=== PATIENT | female | born 1955 | race Caucasian/White ===

== ENCOUNTER → 2016-10-16 | Outpatient (CLI) | payer OTHER ==
[2016-10-16 17:35] LABS: HEMATOCRIT 41.7 % (37-47); MEAN CELL VOLUME 91.4 fL (80-100); MEAN CORPUSCULAR HEMOGLOBIN 29.8 pg (25-34); MEAN CORPUSCULAR HGB CONC 32.6 g/dl (32-36); MEAN PLATELET VOLUME 9.5 fL (7.4-10.4); PLATELET COUNT 245 K/uL (130-400); RED BLOOD COUNT 4.56 M/uL (4.2-5.4); WHITE BLOOD COUNT 12.94 K/uL (4.8-10.8)
[2016-10-16 18:22] LABS: ALT/SGPT 18 U/L (12-78); AST/SGOT 7 U/L (15-37); BLOOD UREA NITROGEN 19 mg/dl (7-18); BUN/CREATININE RATIO 19.4 (10-20); CALCIUM 9.3 mg/dl (8.5-10.1); CARBON DIOXIDE 25 mmol/L (21-32); CHLORIDE 111 mmol/L (98-107); CHOLESTEROL 197 mg/dl (0-200); CREATININE 0.97 mg/dl (0.60-1.20); GLUCOSE 89 mg/dl (70-99); POTASSIUM 3.7 mmol/L (3.5-5.1); SODIUM 144 mmol/L (136-145)
[2016-10-16 18:24] LABS: ALB/GLOB RATIO 1.1 (0.9-2); ALKALINE PHOSPHATASE 99 U/L (45-117); CHOLESTEROL/HDL RATIO 4.7; HDL CHOLESTEROL 42 mg/dl; LDL CHOLESTEROL CALCULATED 106 mg/dl; TRIGLYCERIDES 247 mg/dl (0-150); VERY LOW DENSITY LIPOPROT CALC 49 mg/dl
== END | disposition home or self-care (01) ==
LOC: C.LABBFT 15:01
PROVIDERS: ATTEND Physician Assistant Medical
DX: Z13.6 Encounter for screening for cardiovascular disorders (principal)

== ENCOUNTER → 2016-10-19 | Outpatient (CLI) | payer OTHER ==
[2016-10-19 12:14] LABS: BASO % 0.5 %; BASO ABS # 0.04 K/uL (0-0.2); EOS % 1.1 %; IG% 0.1 %; LYMPH % 25.7 %; LYMPH ABS # 1.87 K/uL (1.2-3.4); MEAN CELL VOLUME 91.3 fL (80-100); MEAN CORPUSCULAR HGB CONC 33.9 g/dl (32-36); MEAN PLATELET VOLUME 9.5 fL (7.4-10.4); MONO % 6.3 %; NEUT % 66.3 %; PLATELET COUNT 250 K/uL (130-400); RED BLOOD COUNT 4.49 M/uL (4.2-5.4); WHITE BLOOD COUNT 7.29 K/uL (4.8-10.8)
[2016-10-19 14:20] LABS: COMPLETE YES
== END | disposition home or self-care (01) ==
LOC: C.LABBFT 10:01
PROVIDERS: ATTEND Physician Assistant Medical
DX: D72.829 Elevated white blood cell count, unspecified (principal)

== ENCOUNTER → 2017-10-25 | Outpatient (CLI) | payer OTHER ==
[2017-10-25 12:08] LABS: BASO % 0.8 %; BASO ABS # 0.05 K/uL (0-0.2); EOS % 1.8 %; EOS ABS # 0.11 K/uL (0-0.5); HEMATOCRIT 40.1 % (37-47); HEMOGLOBIN 13.7 g/dL (12.0-16.0); IG# 0.01 K/uL (0.00-0.02); LYMPH % 26.2 %; LYMPH ABS # 1.64 K/uL (1.2-3.4); MEAN CELL VOLUME 89.5 fL (80-100); MEAN CORPUSCULAR HEMOGLOBIN 30.6 pg (25-34); MEAN CORPUSCULAR HGB CONC 34.2 g/dl (32-36); MEAN PLATELET VOLUME 9.5 fL (7.4-10.4); MONO % 8.6 %; MONO ABS # 0.54 K/uL (0.11-0.59); NEUT % 62.4 %; NEUT ABS # 3.91 K/uL (1.4-6.5); PLATELET COUNT 245 K/uL (130-400); RED CELL DISTRIBUTION WIDTH CV 13.8 % (11.5-14.5); WHITE BLOOD COUNT 6.26 K/uL (4.8-10.8)
[2017-10-25 12:32] LABS: ALT/SGPT 20 U/L (12-78); AST/SGOT 10 U/L (15-37); BLOOD UREA NITROGEN 14 mg/dl (7-18); CALCIUM 8.8 mg/dl (8.5-10.1); CARBON DIOXIDE 27 mmol/L (21-32); CHOLESTEROL 201 mg/dl (0-200); CREATININE 1.09 mg/dl (0.60-1.20); GLUCOSE 100 mg/dl (70-99); POTASSIUM 3.8 mmol/L (3.5-5.1); SODIUM 141 mmol/L (136-145)
[2017-10-25 12:35] LABS: ALKALINE PHOSPHATASE 97 U/L (45-117); LDL CHOLESTEROL CALCULATED 127 mg/dl; TOTAL PROTEIN 8.2 gm/dl (6.4-8.2)
== END | disposition home or self-care (01) ==
LOC: C.LABBFT 08:06
PROVIDERS: ATTEND Nurse Practitioner
DX: D72.829 Elevated white blood cell count, unspecified (principal); Z13.6 Encounter for screening for cardiovascular disorders

== ENCOUNTER 2020-06-09 18:41 | Inpatient (IN) ==
[2020-06-09] MEDS ORDERED: dexAMETHasone 6 MG in SYRINGE 0 ML IV STA (19:07)
[2020-06-09] MEDS ORDERED: ACETAMINOPHEN 500 MG TAB PO STA (19:08)
[2020-06-09] MEDS ORDERED: SODIUM CHLORIDE 0.9% 1000ML 1,000 ML IV SCH (19:15)
--- NOTE | 2020-06-09 19:41 | Emergency Department Note ---
Impression & Plan Hypoxia, COVID-19 ED Provider Note INFORMANT: Patient ED PROVIDER(S): Agustín Noonan MD CHIEF COMPLAINT: Shortness of breath PLAN: Disposition: Admitted Condition: Good MEDICAL DECISION MAKING: Patient presents back to emergency department due to difficulty breathing. She had been diagnosed with COVID-19 and was doing well initially. Today she took a turn for the worse and EMS responded she had hypoxia on room air. She did feel much better with supplemental oxygen. The patient was registering at 90% on room air when I saw her. She did have mild increased work of breathing but was otherwise without complaints. Chest x-ray does show worsening overall appearance with pneumonia. She was given IV steroid, Decadron as well as coverage for pneumonia with Rocephin and doxycycline. Patient was also given Tylenol. Her CBC was unremarkable. Her chemistry panel revealed mild hypokalemia. Given the hypoxia and worsening Covid picture she will need further management in the hospital. [facility] with [facility], Dr. Nicola Mcgregor. Case was discussed and diagnostics were reviewed. The patient was evaluated by the team in the ER and admitted. Triage Nursing notes reviewed and agree them. Additional history obtained from Dr. Aggarwal the patient's treating physician yesterday. Vital Signs: reviewed and remarkable for fever and borderline pulse oximetry. Differential diagnosis: COVID-19 infection, reactive airway disease, pneumonia, pneumothorax, COPD, CHF, infections, cardiac ischemia, pulmonary embolism, musculoskeletal, gastrointestinal, as well as other pathologies. Diagnostics interpreted by me: ECG: Twelve-lead ECG reveals a normal sinus rhythm at 100 bpm. Inferior Q waves. No ST elevation or depression. Normal axis and QRS. Cardiac Monitoring: Cardiac monitoring ordered by me: The patient was placed on continuous cardiac monitoring and observed. It revealed a normal sinus rhythm at 88 beats per minute without ectopy or evidence of dysrhythmia. Imaging studies: Chest x-ray reveals worsening bilateral infiltrates concerning for pneumonia. [facility]PI: The patient is a 64 year old female who presents to the Emergency Room with complaints of shortness of breath. This started today and is worsening. The patient also notes the following associated symptoms, feeling feverish and a mild cough. The patient has found no relieving factors. Current pain is rated as 0/10. Patient was diagnosed with COVID-19 this week. She was seen yesterday in the ER and was doing relatively well until today. EMS noted her room air saturation was 88% and work of breathing was elevated. She seemed to improve with supplemental oxygen. Pt denies LOC, headache, chills, diaphoresis, visual changes, neck pain, chest pain, nausea, vomiting, abdominal pain, back pain, melena, hematochezia, urinary symptoms, numbness, weakness, lymphadenopathy, rash, or other complaints. ROS: See above HPI for pertinent positives & negatives. A total of 10 systems reviewed and were otherwise negative. PAST MEDICAL HISTORY:See Below, hyperlipidemia PAST SURGICAL HISTORY:See Below, FAMILY HISTORY:See Below SOCIAL HISTORY:See Below, lives with family HOME MEDICATIONS:See Below ALLERGIES:See Below VITALS:See Below PHYSICAL EXAMINATION: GENERAL: Awake, alert, well-appearing, in no distress HENT: Normocephalic, atraumatic. Oropharynx unremarkable. EYES: Normal conjunctiva. Sclera non-icteric. NECK: Inspection normal. Non-tender. Supple. No nuchal rigidity. FROM. No masses. RESPIRATORY: Clear to auscultation. No wheezes. No rales. Mildly increased respiratory effort. CARDIAC: Normal rate. Normal rhythm. No murmurs. No rubs. Extremities warm and well perfused. Pulses equal. No JVD. GI: Soft, non-distended. No tenderness to palpation. No rebound or guarding. No masses. RECTAL: Deferred. MUSCULOSKELETAL: Atraumatic. Chest examination reveals no tenderness. The back is symmetrical on inspection without obvious abnormality. There is no CVA tenderness to palpation. No joint edema. LOWER EXTREMITIES: Calves are equal size bilaterally and non-tender. No edema. No discoloration. NEURO: Normal sensorium. No sensory or motor deficits noted. SKIN: No rash or jaundice noted. Agustín Noonan MD v Past Med/Surg History Surgical History (Updated 01/13/20 @ 13:22 by Che Patel) No history of previous surgery Family History (Updated 10/13/19 @ 14:24 by Bethany Lewis MA) Other Colorectal cancer Diabetes Social History (Updated 01/13/20 @ 13:21 by Che Patel) Smoking Status: Never smoker Hx Alcohol Use: No Hx Substance Use: No Preferred Language: Turkmen Visual Impairment: No Limitations Hearing Ability: Normal marital status: Single Current Living Situation: Other Current Living Situation Comment: lives with sister Feels Safe at Home: Yes Allergies Allergies Allergy/AdvReac Type Severity Reaction Status Date / Time No Known Allergies Allergy Unverified 06/08/20 11:16 Home Meds Home Medications Medication Instructions Recorded Confirmed acetaminophen [Tylenol Extra 1,000 mg PO BID PRN 06/09/20 06/09/20 Strength] Results & Data (ED) Vital Signs Vital Signs - 24 hr 06/09/20 18:50 06/09/20 19:03 06/09/20 19:41 Temperature 38.7 C H Temperature Source Oral Pulse Rate 107 H 99 H Pulse Rate [Right Finger] 90 Pulse Rhythm Regular Pulse Strength Normal Respiratory Rate 20 16 Respiratory Effort / Characteristics Non-Labored Spontaneous Non-Labored Respiratory Depth Normal Normal Respiratory Pattern Regular Blood Pressure 116/67 Blood Pressure [Right Arm] 108/63 Blood Pressure Mean 83 Blood Pressure Mean [Right Arm] 78 Blood Pressure Position Lying Blood Pressure Position [Right Arm] Lying Pulse Oximetry 90 96 95 Oxygen Delivery Method Room Air Room Air Room Air Sepsis Recent Fever Within 48 Hours Yes Sepsis New/Unexplained Change in Mental Status No Sepsis Action Taken by Nursing Physician Notified 06/09/20 20:01 06/09/20 21:16 Temperature 38.0 C H Temperature Source Oral Pulse Rate Pulse Rate [Right Finger] 98 H 88 Pulse Rhythm Pulse Strength Respiratory Rate 16 16 Respiratory Effort / Characteristics Respiratory Depth Normal Normal Respiratory Pattern Blood Pressure Blood Pressure [Right Arm] 130/72 108/73 Blood Pressure Mean Blood Pressure Mean [Right Arm] 91 84 Blood Pressure Position Blood Pressure Position [Right Arm] Lying Lying Pulse Oximetry 94 94 Oxygen Delivery Method Room Air Room Air Sepsis Recent Fever Within 48 Hours Sepsis New/Unexplained Change in Mental Status Sepsis Action Taken by Nursing Laboratory Data Result diagrams: 06/09/20 19:35 06/09/20 19:35 Lab Results 06/09/20 06/09/20 06/09/20 Range/Units 19:35 19:35 19:35 WBC (4.8-10.8) K/uL RBC (4.2-5.4) M/uL Hgb (12.0-16.0) g/dL Hct (37-47) % MCV (80-100) fL MCH (25-34) pg MCHC (32-36) g/dL RDW Std Deviation (36.4-46.3) fL RDW Coeff of Ahmet (11.5-14.5) % Plt Count (130-400) K/uL MPV (7.4-10.4) fL Immature Gran % (Auto) % Neut % (Auto) % Lymph % (Auto) % [place] % (Auto) % Eos % (Auto) % Baso % (Auto) % Neut # (Auto) (1.4-6.5) K/uL Lymph # (Auto) (1.2-3.4) K/uL [place] # (Auto) (0.11-0.59) K/uL Eos # (Auto) (0-0.5) K/uL Baso # (Auto) (0-0.2) K/uL Immature Gran # (Auto) (0.00-0.02) K/uL PT (9.0-12.0) Seconds INR (0.9-1.1) APTT (21.0-31.0) Seconds PTT Ratio Sodium 138 (136-145) mmol/L Potassium 2.9 L (3.5-5.1) mmol/L Chloride 104 (98-107) mmol/L Carbon Dioxide 26 (21-32) mmol/L Anion Gap 7.0 (3-11) BUN 12 (7-18) mg/dl Creatinine 0.98 (0.6-1.2) mg/dl Est Cr Clr Drug Dosing 58.6 ml/min Est GFR ( Amer) 71.2 Est GFR (Non-Af Amer) 61.4 BUN/Creatinine Ratio 12.4 (10-20) Glucose 129 H (70-99) mg/dl Lactate (0.4-2.0) mmol/L Calcium 8.3 L (8.5-10.1) mg/dl Magnesium 1.9 (1.8-2.4) mg/dl Total Bilirubin 0.5 (0.2-1) mg/dl AST 25 (15-37) U/L ALT 20 (12-78) U/L Alkaline Phosphatase 75 (45-117) U/L Troponin I < 0.015 (0-0.045) ng/ml Total Protein 7.9 (6.4-8.2) gm/dl Albumin 3.3 L (3.4-5.0) gm/dl Globulin 4.6 H (2.5-4.0) gm/dl Albumin/Globulin Ratio 0.7 L (0.9-2) Procalcitonin 0.51 H (0-0.5) ng/ml Blood Type A Positive Antibody Screen NEGATIVE 06/09/20 06/09/20 06/09/20 Range/Units 19:35 19:35 19:40 WBC 8.98 (4.8-10.8) K/uL RBC 4.37 (4.2-5.4) M/uL Hgb 13.1 (12.0-16.0) g/dL Hct 38.5 (37-47) % MCV 88.1 (80-100) fL MCH 30.0 (25-34) pg MCHC 34.0 (32-36) g/dL RDW Std Deviation 42.8 (36.4-46.3) fL RDW Coeff of Ahmet 13.2 (11.5-14.5) % Plt Count 173 (130-400) K/uL MPV 9.6 (7.4-10.4) fL Immature Gran % (Auto) 0.3 % Neut % (Auto) 89.0 % Lymph % (Auto) 5.0 % [place] % (Auto) 5.7 % Eos % (Auto) 0.0 % Baso % (Auto) 0.0 % Neut # (Auto) 7.99 H (1.4-6.5) K/uL Lymph # (Auto) 0.45 L (1.2-3.4) K/uL [place] # (Auto) 0.51 (0.11-0.59) K/uL Eos # (Auto) 0.00 (0-0.5) K/uL Baso # (Auto) 0.00 (0-0.2) K/uL Immature Gran # (Auto) 0.03 H (0.00-0.02) K/uL PT 10.9 (9.0-12.0) Seconds INR 1.0 (0.9-1.1) APTT 30.5 (21.0-31.0) Seconds PTT Ratio 1.1 Sodium (136-145) mmol/L Potassium (3.5-5.1) mmol/L Chloride (98-107) mmol/L Carbon Dioxide (21-32) mmol/L Anion Gap (3-11) BUN (7-18) mg/dl Creatinine (0.6-1.2) mg/dl Est Cr Clr Drug Dosing ml/min Est GFR ( Amer) Est GFR (Non-Af Amer) BUN/Creatinine Ratio (10-20) Glucose (70-99) mg/dl Lactate (0.4-2.0) mmol/L Calcium (8.5-10.1) mg/dl Magnesium (1.8-2.4) mg/dl Total Bilirubin (0.2-1) mg/dl AST (15-37) U/L ALT (12-78) U/L Alkaline Phosphatase (45-117) U/L Troponin I (0-0.045) ng/ml Total Protein (6.4-8.2) gm/dl Albumin (3.4-5.0) gm/dl Globulin (2.5-4.0) gm/dl Albumin/Globulin Ratio (0.9-2) Procalcitonin (0-0.5) ng/ml Blood Type Antibody Screen 06/09/20 Range/Units 20:43 WBC (4.8-10.8) K/uL RBC (4.2-5.4) M/uL Hgb (12.0-16.0) g/dL Hct (37-47) % MCV (80-100) fL MCH (25-34) pg MCHC (32-36) g/dL RDW Std Deviation (36.4-46.3) fL RDW Coeff of Ahmet (11.5-14.5) % Plt Count (130-400) K/uL MPV (7.4-10.4) fL Immature Gran % (Auto) % Neut % (Auto) % Lymph % (Auto) % [place] % (Auto) % Eos % (Auto) % Baso % (Auto) % Neut # (Auto) (1.4-6.5) K/uL Lymph # (Auto) (1.2-3.4) K/uL [place] # (Auto) (0.11-0.59) K/uL Eos # (Auto) (0-0.5) K/uL Baso # (Auto) (0-0.2) K/uL Immature Gran # (Auto) (0.00-0.02) K/uL PT (9.0-12.0) Seconds INR (0.9-1.1) APTT (21.0-31.0) Seconds PTT Ratio Sodium (136-145) mmol/L Potassium (3.5-5.1) mmol/L Chloride (98-107) mmol/L Carbon Dioxide (21-32) mmol/L Anion Gap (3-11) BUN (7-18) mg/dl Creatinine (0.6-1.2) mg/dl Est Cr Clr Drug Dosing ml/min Est GFR ( Amer) Est GFR (Non-Af Amer) BUN/Creatinine Ratio (10-20) Glucose (70-99) mg/dl Lactate 0.7 (0.4-2.0) mmol/L Calcium (8.5-10.1) mg/dl Magnesium (1.8-2.4) mg/dl Total Bilirubin (0.2-1) mg/dl AST (15-37) U/L ALT (12-78) U/L Alkaline Phosphatase (45-117) U/L Troponin I (0-0.045) ng/ml Total Protein (6.4-8.2) gm/dl Albumin (3.4-5.0) gm/dl Globulin (2.5-4.0) gm/dl Albumin/Globulin Ratio (0.9-2) Procalcitonin (0-0.5) ng/ml Blood Type Antibody Screen Administered Medications Doxycycline Hyclate 100 mg/ (Dextrose) 110 mls @ 50 mls/hr IV NOW STA Stop: 06/09/20 22:37 Last Admin: 06/09/20 21:15 Dose: 50 mls/hr Documented by: [id number] Discontinued Medications Acetaminophen (Acetaminophen 500 Mg Tab) 1,000 mg PO NOW STA Stop: 06/09/20 19:09 Last Admin: 06/09/20 19:40 Dose: 1,000 mg Documented by: [id number] Sodium Chloride (Nss 1000ml) 1,000 mls @ 999 mls/hr IV .[id number] DARRYL Stop: 06/09/20 20:15 Last Admin: 06/09/20 19:40 Dose: 999 mls/hr Documented by: [id number] Dexamethasone 6 mg/ Syringe 1.5 mls @ 1 mls/min IV NOW STA Stop: 06/09/20 19:08 Last Admin: 06/09/20 19:41 Dose: 1 mls/min Documented by: [id number] Ceftriaxone Sodium (Rocephin) 2,000 mg in 70 mls @ 140 mls/hr IV NOW STA Stop: 06/09/20 20:55 Last Admin: 06/09/20 21:15 Dose: 140 mls/hr Documented by: [id number] Discharge Plan Visit Data Chief Complaint: Illness Stated Complaint: SOB, ILLNESS, COVID + ED Provider: Agustín Noonan Discharge Problem: Hypoxia, COVID-19 Forms Stand Alone Forms: My [facility] Prescriptions Prescriptions: No Action acetaminophen [Tylenol Extra Strength] 500 mg Tablet 1,000 mg PO BID PRN (Reason: Pain) RF: 0
[2020-06-09 19:51] LABS: Hematocrit (blood only) 38.5 % (37-47); Hemoglobin 13.1 g/dL (12.0-16.0); Mean Corpuscular Volume 88.1 fL (80-100); Mean Platelet Volume 9.6 fL (7.4-10.4); Platelet Count 173 K/uL (130-400); RDW Coefficient of Variation 13.2 % (11.5-14.5); RDW Standard Deviation 42.8 fL (36.4-46.3); Red Blood Count 4.37 M/uL (4.2-5.4); White Blood Count 8.98 K/uL (4.8-10.8)
--- NOTE | 2020-06-09 19:58 | XRay Report ---
XR chest 1V portable HISTORY: 64 years-old Female hypoxia, +covid acute hypoxia COMPARISON: Chest radiograph 06/08/2020 TECHNIQUE: Portable AP view of the chest FINDINGS: Cardiac silhouette is upper limits of normal in size. Moderate hemidiaphragmatic elevation. Lungs are hypoinflated. No pneumothorax or large pleural effusion. Mildly progressed bilateral airspace opacit ies. Bones appear grossly intact. IMPRESSION: Mildly progressed bilateral airspace opacities compatible with worsening pneumonia. ACT 112: Negative or not required by law. The above report was generated using voice recognition software. It may contain grammatical, syntax o r spelling errors. Electronically signed by: Marv Alarcon M.D. 06/09/2020 7:57 PM
[2020-06-09 20:01] LABS: Partial Thromboplastin Ratio 1.1; Partial Thromboplastin Time 30.5 Seconds (21.0-31.0); Prothrombin Time 10.9 Seconds (9.0-12.0)
[2020-06-09 20:09] LABS: Alanine Aminotransferase 20 U/L (12-78); Albumin Level 3.3 gm/dl (3.4-5.0); Aspartate Aminotransferase 25 U/L (15-37); BUN Creatinine Ratio 12.4 (10-20); Blood Urea Nitrogen 12 mg/dl (7-18); Calcium 8.3 mg/dl (8.5-10.1); Carbon Dioxide 26 mmol/L (21-32); Chloride 104 mmol/L (98-107); Creatinine Clr Calc Pharmacy 58.6 ml/min; Est GFR (African American) 71.2; Est GFR (Non-African American) 61.4; Glucose 129 mg/dl (70-99); Magnesium 1.9 mg/dl (1.8-2.4); Potassium 2.9 mmol/L (3.5-5.1); Sodium 138 mmol/L (136-145)
[2020-06-09 20:14] LABS: Albumin Globulin Ratio 0.7 (0.9-2); Alkaline Phosphatase 75 U/L (45-117); Bilirubin,Total 0.5 mg/dl (0.2-1); Globulin 4.6 gm/dl (2.5-4.0); Total Protein 7.9 gm/dl (6.4-8.2); Troponin I < 0.015 ng/ml (0-0.045)
[2020-06-09] MEDS ORDERED: DOXYCYCLINE HYCLATE 100 MG in DEXTROSE 5% 100 ML IV STA (20:26)
[2020-06-09] MEDS ORDERED: cefTRIAXone SODIUM 2,000 MG/70 ML BAG IV STA (20:26)
[2020-06-09 20:40] LABS: Immature Granulocytes # (auto) 0.03 K/uL (0.00-0.02); Immature Granulocytes % (auto) 0.3 %; Lymphocytes # (auto) 0.45 K/uL (1.2-3.4); Monocytes # (auto) 0.51 K/uL (0.11-0.59); Monocytes % (auto) 5.7 %; Neutrophils # (auto) 7.99 K/uL (1.4-6.5)
--- NOTE | 2020-06-09 22:40 | History & Physical Report ---
Date of Service June 09, 2020 Assessment & Plan (1) Pneumonia due to COVID-19 virus: Pneumonia due to COVID-19 virus infection with hypoxia- Chest x-ray today compared to 06/08 shows worsening pneumonia. Decadron 6 mg IV daily Convalescent plasma, consent obtained Remdesivir IV per protocol Ceftriaxone 1 g IV daily Azithromycin 500 mg IV daily Ventolin HFA 2 puffs 4 times daily, and every 2 hours as needed Nasal cannula oxygen, titrate to keep pulse ox 94 to 95% Present on Admission?: Yes (2) Fatigue: Patient's principal symptom is that of fatigue Present on Admission?: Yes (3) Hypoxia: See above Present on Admission?: Yes History of Present Illness Chief Complaint: The patient presents to the emergency department with complaint of shortness of breath, with a history of COVID-19 diagnosis on 06/08, but became hypoxic and EMS was called to her home. Primary Care Provider: Bill Malik MD The patient is a 64-year-old female with a past medical history including periodontitis, mild intellectual disability, hyperlipidemia and recent diagnosis of COVID-19 infection. Vital signs in the emergency department revealed the following:, Temperature 101.7 and pulse ox 90% on room air.. Significant laboratories: Glucose 129, albumin 3.3, potassium 2.9. COVID-19 was positive on 06/08. Allergies Allergy/AdvReac Type Severity Reaction Status Date / Time No Known Allergies Allergy Unverified 06/08/20 11:16 Home Medications Medication Instructions Recorded Confirmed Type acetaminophen [Tylenol Extra 1,000 mg PO BID PRN 06/09/20 06/09/20 History Strength] Past Med/Surg History Surgical History (Updated 01/13/20 @ 13:22 by Che Patel) No history of previous surgery Family History (Updated 10/13/19 @ 14:24 by Bethany Lewis MA) Other Colorectal cancer Diabetes Social History (Updated 01/13/20 @ 13:21 by Che Patel) Smoking Status: Former smoker Hx Alcohol Use: No Hx Substance Use: No Preferred Language: Slovak Communication Ability: Effective Visual Impairment: No Limitations Hearing Ability: Normal [employer] Required: No Beliefs That Will Affect Care: None marital status: Single Current Living Situation: Family Current Living Situation Comment: sister Feels Safe at Home: Yes Assistive Devices: None Review of Systems Review of Systems: The patient denies chest pain, palpitations, lower extremity swelling, sore throat, fevers, chills, sweats, nausea, vomiting, diarrhea , constipation, abdominal pain, pelvic pain, blood in urine or stool, dysuria, urinary frequency or urgency, lightheadedness, dizziness, headache, memory loss, loss of consciousness, rash, abnormal bruising or bleeding, imbalance, focal weakness, numbness or tingling in arms or legs, generalized arthralgias or myalgias, back or neck pain, or night sweats. The review of systems is otherwise negative other than for that already noted above, and at least 10 systems have been reviewed. Physical Exam Physical Exam: The patient is awake, alert and oriented 3, well developed and well nourished, normocephalic and atraumatic, lying in bed and in no acute distress. HEENT--PERRL, EOMI, mucous membranes and oropharynx dry. Neck--supple. No JVD. No bruits. Thyroid normal, trachea midline, no adenopathy. Heart--normal S1 and S2. No murmurs, rubs or gallops. Lungs--coarse breath sounds bilaterally. No respiratory distress, no accessory muscle use. Abdomen--normal bowel sounds and soft. Nontender. Nondistended, no hernias or masses, no organomegaly. Extremities--no cyanosis or clubbing. No edema. Dermatologic--normal skin turgor, normal color, no abnormal lymph nodes, no rash. Neurologic--cranial nerves II through XII grossly intact. Rheumatologic--normal range of motion. Psychiatric--normal affect. Results & Data Results & Data ([facility]) Vital Signs (Past 12 Hours) Vital Signs Temp Pulse Pulse Resp BP BP Pulse Ox 06/09/20 21:16 100.4 F H 88 16 108/73 94 06/09/20 20:01 98 H 16 130/72 94 06/09/20 19:41 99 H 95 06/09/20 19:03 90 16 108/63 96 06/09/20 18:50 101.7 F H 107 H 20 116/67 90 Laboratory Results Laboratory Results WBC 8.98 K/uL (4.8-10.8) 06/09/20 19:35 RBC 4.37 M/uL (4.2-5.4) 06/09/20 19:35 Hgb 13.1 g/dL (12.0-16.0) 06/09/20 19:35 Hct 38.5 % (37-47) 06/09/20 19: MCV 88.1 fL (80-100) 06/09/20 19:35 MCH 30.0 pg (25-34) 06/09/20 19: MCHC 34.0 g/dL (32-36) 06/09/20 19: RDW Std Deviation 42.8 fL (36.4-46.3) 06/09/20 19: RDW Coeff of Ahmet 13.2 % (11.5-14.5) 06/09/20: Plt Count 173 K/uL (130-400) 06/09/20: MPV 9.6 fL (7.4-10.4) 06/09/20 19:35 Immature Gran % (Auto) 0.3 % 06/09/20: Neut % (Auto) 89.0 % 06/09/20 19:35 Lymph % (Auto) 5.0 % 06/09/20 19:35 [place] % (Auto) 5.7 % 06/09/20 19:35 Eos % (Auto) 0.0 % 06/09/20: Baso % (Auto) 0.0 % 06/09/20 19:35 Neut # (Auto) 7.99 K/uL (1.4-6.5) H 06/09/20 19:35 Lymph # (Auto) 0.45 K/uL (1.2-3.4) L 06/09/20:35 [place] # (Auto) 0.51 K/uL (0.11-0.59) 06/09/20 19:35 Eos # (Auto) 0.00 K/uL (0-0.5) 06/09/20 19:35 Baso # (Auto) 0.00 K/uL (0-0.2) 06/09/20 19:35 Immature Gran # (Auto) 0.03 K/uL (0.00-0.02) H 06/09/20 19: PT 10.9 Seconds (9.0-12.0) 06/09/20 19:35 INR 1.0 (0.9-1.1) 06/09/20 19:35 APTT 30.5 Seconds (21.0-31.0) 06/09/20 19:35 PTT Ratio 1.1 06/09/20 19:35 D-Dimer 770 ug/L FEU (0-500) H* 06/09/20 19:35 Sodium 138 mmol/L (136-145) 06/09/20 19:35 Potassium 2.9 mmol/L (3.5-5.1) L 06/09/20 19:35 Chloride 104 mmol/L (98-107) 06/09/20 19:35 Carbon Dioxide 26 mmol/L (21-32) 06/09/20 19:35 Anion Gap 7.0 (3-11) 06/09/20 19:35 BUN 12 mg/dl (7-18) 06/09/20 19:35 Creatinine 0.98 mg/dl (0.6-1.2) 06/09/20 19:35 Est Cr Clr Drug Dosing 58.6 ml/min 06/09/20 19:35 Est GFR ( Amer) 71.2 06/09/20 19:35 Est GFR (Non-Af Amer) 61.4 06/09/20 19:35 BUN/Creatinine Ratio 12.4 (10-20) 06/09/20 19:35 Glucose 129 mg/dl (70-99) H 06/09/20 19:35 Lactate 0.7 mmol/L (0.4-2.0) 06/09/20 20:43 Calcium 8.3 mg/dl (8.5-10.1) L 06/09/20 19:35 Magnesium 1.9 mg/dl (1.8-2.4) 06/09/20 19:35 Total Bilirubin 0.5 mg/dl (0.2-1) 06/09/20 19:35 AST 25 U/L (15-37) 06/09/20 19:35 ALT 20 U/L (12-78) 06/09/20 19:35 Alkaline Phosphatase 75 U/L (45-117) 06/09/20 19:35 Troponin I < 0.015 ng/ml (0-0.045) 06/09/20 19:35 Total Protein 7.9 gm/dl (6.4-8.2) 06/09/20 19:35 Albumin 3.3 gm/dl (3.4-5.0) L 06/09/20 19:35 Globulin 4.6 gm/dl (2.5-4.0) H 06/09/20 19:35 Albumin/Globulin Ratio 0.7 (0.9-2) L 06/09/20 19:35 Procalcitonin 0.51 ng/ml (0-0.5) H 06/09/20 19:35 Hepatitis C Ab Screen Neg (Neg) 06/09/20 19:35 Blood Type A Positive 06/09/20 19:35 Antibody Screen NEGATIVE 06/09/20 19:35 Diagnostic Findings [facility], [id number] XRay Report Patient: Matteo MCCABE Date: 06/09/20#: [id number]: [id number]Acct ID:[id number]: Date: 1955[facility] Zip: [place] [id number]: 64Location: EDSex: FRoom/Bed:Att Phy:Diagnosis: SOB, ILLNESS, COVID +Yesenia Phy: Bill Malik III, MDService Date: 06/09/20Fam Phy:Interpreting Phy: Brayden AlarconAdmit Phy: Ordering Phy: Agustín Noonan MD cc: ~ XR chest 1V portable HISTORY: 64 years-old Female hypoxia, +covid acute hypoxia COMPARISON: Chest radiograph 06/08/2020 TECHNIQUE: Portable AP view of the chest FINDINGS: Cardiac silhouette is upper limits of normal in size. Moderate hemidiaphragmatic elevation. Lungs are hypoinflated. No pneumothorax or large pleural effusion. Mildly progressed bilateral airspace opacities. Bones appear grossly intact. IMPRESSION: Mildly progressed bilateral airspace opacities compatible with worsening pneumonia. ACT 112: Negative or not required by law. The above report was generated using voice recognition software. It may contain grammatical, syntax or spelling errors. Electronically signed by: Marv Alarcon M.D. 06/09/2020 7:57 PM Dictated: 06/09/[id number]: 06/09/201955 Code Status & VTE Plan Code Status Full code VTE Prophylaxis Plan VTE Prophylaxis will be ordered: Yes PG Care Time/CCT Total # of Minutes Spent Total Time Spent with Patient: Total time spent is greater than 50% in coordination of care (as documented) at patient's floor/unit and/or counseling patient: Coding Level of Care Code 22044 Initial Inpt Care Lvl 2 Diagnoses Pneumonia due to COVID-19 virus U07.1; J12.89 Fatigue R53.83 Fatigue type: unspecified Hypoxia R09.02 (1) Fatigue Fatigue type: unspecified Qualified Code(s): R53.83 - Other fatigue
[2020-06-09 22:51] LABS: D Dimer 770 ug/L FEU (0-500)
[2020-06-10] MEDS ORDERED: ACETAMINOPHEN 325 MG TAB PO PRN (00:22)
[2020-06-10] MEDS ORDERED: ONDANSETRON INJ 2 MG/ML 2 ML VIAL IV PRN (00:22)
[2020-06-10] MEDS ORDERED: REMDESIVIR 200 MG in SODIUM CHLORIDE 0.9% 210 ML IV ONE (01:00)
[2020-06-10] MEDS: SODIUM CHLORIDE 0.9% 10ML FLUSH IV SCH ×2 (02:09→23:29)
[2020-06-10] MEDS ORDERED: POTASSIUM CHLORIDE CRTAB 20 MEQ TABCR PO ONE (05:25)
[2020-06-10] MEDS: dexAMETHasone 6 MG in SYRINGE 0 ML IV SCH (10:10)
[2020-06-10] MEDS: AZITHROMYCIN 500 MG in DEXTROSE 5% 250 ML IV SCH (10:13)
[2020-06-10 12:15] LABS: BUN Creatinine Ratio 12.9 (10-20); Calcium 8.5 mg/dl (8.5-10.1); Creatinine Clr Calc Pharmacy 70.3 ml/min; Est GFR (African American) 88.3; Est GFR (Non-African American) 76.2; Potassium 3.5 mmol/L (3.5-5.1)
[2020-06-10] MEDS: ALBUTEROL HFA 8 GM INHALER INH SCH ×3 (12:20→19:21)
--- NOTE | 2020-06-10 13:39 | Hospitalist Progress Note ---
Date of Service June 10, 2020 Assessment & Plan (1) Pneumonia due to COVID-19 virus: Pneumonia due to COVID-19 virus infection with hypoxia- requiring 2L NC, no distress Chest x-ray 06/09 shows worsening pneumonia compared to 06/08 Decadron 6 mg IV daily, day 2 Convalescent plasma, consent obtained, awaiting transfusion Remdesivir IV per protocol, day 2 if she would come off oxygen then would stop Remdesivir within the window as symptoms were less than 7 days Ceftriaxone 1 g IV daily x 5 days Azithromycin 500 mg IV daily x 5 days Ventolin HFA 2 puffs 4 times daily, and every 2 hours as needed Nasal cannula oxygen, titrate to keep pulse ox 94 to 95% check labs tomorrow try to wean oxygen as tolerated may get worse prior to getting better, watch closely (2) Fatigue: Patient's principal symptom is that of fatigue (3) Hypoxia: acute hypoxic respiratory failure due to COVID pneumonia stable on 2L today monitor closely for any desaturations Admission and Anticipated Discharge Date Admission Date: June 09, 2020 Subjective patient pleasant, eating lunch, breathing well, no distress denies chest pain, denies dyspnea, has a mild cough, no fever reviewed chart she is on 2L NC at this time reviewed labs Review of Systems Review of Systems: All systems reviewed & are unremarkable except as noted in Subjective Physical Exam Constitutional: WD/WN, vitals as above Neck: trachea midline, no thyromegaly Respiratory: normal respiratory effort, lungs clear to auscultation Cardiovascular: RRR, no murmur, no edema Gastrointestinal (Abdomen): normal bowel sounds, soft, nontender, no hepatosplenomegaly Musculoskeletal: no cyanosis or clubbing, extremities motor strength 5/5 Skin: no rashes, warm and dry Neurologic: patellar DTR's 2+ bilat, sensation intact and PERRL, EOMI, accommodation nl, no face palsy, no dysarthria Psychiatric: A+Ox3, euthymic affect Lymphatic: no cervical or axillary lymphadenopathy Results & Data Results & Data ([facility]) Vital Signs (Past 12 Hours) Vital Signs Temp Pulse Pulse Resp BP BP Pulse Ox 06/10/20 12:11 36.8 C 93 H 16 112/72 90 06/10/20 11:06 18 95 06/10/20 10:30 18 94 06/10/20 10:00 18 94 06/10/20 09:30 17 94 06/10/20 09:00 18 95 06/10/20 08:30 18 94 06/10/20 08:09 36.9 C 91 H 18 126/68 95 06/10/20 08:00 85 17 94 06/10/20 07:30 18 95 06/10/20 07:29 36.6 C 91 H 18 127/68 94 06/10/20 07:09 36.7 C 78 18 131/72 95 06/10/20 07:00 18 94 06/10/20 06:58 36.9 C 91 H 20 123/64 94 06/10/20 06:28 36.6 C 77 16 128/70 96 06/10/20 06:13 36.6 C 78 16 128/70 96 06/10/20 06:11 37.3 C 72 22 122/64 95 06/10/20 06:09 89 L 06/10/20 05:50 37.1 C 74 22 119/62 90 06/10/20 04:17 36.9 C 67 16 105/49 L 92 06/10/20 03:47 16 91 06/10/20 02:11 36.8 C 75 16 122/69 92 Laboratory Results Laboratory Results - last 24 hr 06/09/20 06/09/20 06/09/20 19:35 19:35 19:35 WBC RBC Hgb Hct MCV MCH MCHC RDW Std Deviation RDW Coeff of Ahmet Plt Count MPV Immature Gran % (Auto) Neut % (Auto) Lymph % (Auto) [place] % (Auto) Eos % (Auto) Baso % (Auto) Neut # (Auto) Lymph # (Auto) [place] # (Auto) Eos # (Auto) Baso # (Auto) Immature Gran # (Auto) PT INR APTT PTT Ratio D-Dimer Sodium 138 Potassium 2.9 L Chloride 104 Carbon Dioxide 26 Anion Gap 7.0 BUN 12 Creatinine 0.98 Est Cr Clr Drug Dosing 58.6 Est GFR ( Amer) 71.2 Est GFR (Non-Af Amer) 61.4 BUN/Creatinine Ratio 12.4 Glucose 129 H Lactate Calcium 8.3 L Magnesium 1.9 Total Bilirubin 0.5 AST 25 ALT 20 Alkaline Phosphatase 75 Troponin I < 0.015 Total Protein 7.9 Albumin 3.3 L Globulin 4.6 H Albumin/Globulin Ratio 0.7 L Procalcitonin 0.51 H Hepatitis C Ab Screen Blood Type A Positive Antibody Screen NEGATIVE 06/09/20 06/09/20 06/09/20 19:35 19:35 19:35 WBC 8.98 RBC 4.37 Hgb 13.1 Hct 38.5 MCV 88.1 MCH 30.0 MCHC 34.0 RDW Std Deviation 42.8 RDW Coeff of Ahmet 13.2 Plt Count 173 MPV 9.6 Immature Gran % (Auto) 0.3 Neut % (Auto) 89.0 Lymph % (Auto) 5.0 [place] % (Auto) 5.7 Eos % (Auto) 0.0 Baso % (Auto) 0.0 Neut # (Auto) 7.99 H Lymph # (Auto) 0.45 L [place] # (Auto) 0.51 Eos # (Auto) 0.00 Baso # (Auto) 0.00 Immature Gran # (Auto) 0.03 H PT 10.9 INR 1.0 APTT 30.5 PTT Ratio 1.1 D-Dimer 770 H* Sodium Potassium Chloride Carbon Dioxide Anion Gap BUN Creatinine Est Cr Clr Drug Dosing Est GFR ( Amer) Est GFR (Non-Af Amer) BUN/Creatinine Ratio Glucose Lactate Calcium Magnesium Total Bilirubin AST ALT Alkaline Phosphatase Troponin I Total Protein Albumin Globulin Albumin/Globulin Ratio Procalcitonin Hepatitis C Ab Screen Blood Type Antibody Screen 06/09/20 06/09/20 06/09/20 19:35 19:40 20:43 WBC RBC Hgb Hct MCV MCH MCHC RDW Std Deviation RDW Coeff of Ahmet Plt Count MPV Immature Gran % (Auto) Neut % (Auto) Lymph % (Auto) [place] % (Auto) Eos % (Auto) Baso % (Auto) Neut # (Auto) Lymph # (Auto) [place] # (Auto) Eos # (Auto) Baso # (Auto) Immature Gran # (Auto) PT INR APTT PTT Ratio D-Dimer Sodium Potassium Chloride Carbon Dioxide Anion Gap BUN Creatinine Est Cr Clr Drug Dosing Est GFR ( Amer) Est GFR (Non-Af Amer) BUN/Creatinine Ratio Glucose Lactate 0.7 Calcium Magnesium Total Bilirubin AST ALT Alkaline Phosphatase Troponin I Total Protein Albumin Globulin Albumin/Globulin Ratio Procalcitonin Hepatitis C Ab Screen Neg Blood Type Antibody Screen 06/10/20 11:21 WBC RBC Hgb Hct MCV MCH MCHC RDW Std Deviation RDW Coeff of Ahmet Plt Count MPV Immature Gran % (Auto) Neut % (Auto) Lymph % (Auto) [place] % (Auto) Eos % (Auto) Baso % (Auto) Neut # (Auto) Lymph # (Auto) [place] # (Auto) Eos # (Auto) Baso # (Auto) Immature Gran # (Auto) PT INR APTT PTT Ratio D-Dimer Sodium 141 Potassium 3.5 D Chloride 109 H Carbon Dioxide 27 Anion Gap 5.0 BUN 11 Creatinine 0.82 Est Cr Clr Drug Dosing 70.3 Est GFR ( Amer) 88.3 Est GFR (Non-Af Amer) 76.2 BUN/Creatinine Ratio 12.9 Glucose 168 H Lactate Calcium 8.5 Magnesium Total Bilirubin AST ALT Alkaline Phosphatase Troponin I Total Protein Albumin Globulin Albumin/Globulin Ratio Procalcitonin Hepatitis C Ab Screen Blood Type Antibody Screen Medications Administered Current Inpatient Medications Acetaminophen (Acetaminophen 325 Mg Tab) 650 mg PO Q4H PRN PRN Reason: Pain or Fever Stop: 07/10/20 00:21 Albuterol (Albuterol Hfa 8 Gm Inhaler) 2 puffs INH QIDR [facility] Stop: 07/10/20 00:21 Last Admin: 06/10/20 12:20 Dose: Not Given Documented by: Dexamethasone 6 mg/ Syringe 1.5 mls @ 1 mls/min IV QAM [facility] Stop: 07/10/20 08:59 Last Admin: 06/10/20 10:10 Dose: 1 mls/min Documented by: Remdesivir 100 mg/ Sodium (Chloride) 250 mls @ 250 mls/hr IV Q24H [facility]; Protocol Stop: 06/13/20 20:59 Ceftriaxone Sodium 1,000 mg/ (Dextrose) 50 mls @ 100 mls/hr IV Q24H [facility]; Protocol Stop: 06/15/20 20:29 Azithromycin 500 mg/ Dextrose 255 mls @ 125 mls/hr IV DAILY [facility] Stop: 06/17/20 08:59 Last Infusion: 06/10/20 12:21 Dose: Infused Documented by: Ondansetron HCl (Ondansetron Inj 2 Mg/Ml 2 Ml Vial) 4 mg IV Q6H PRN PRN Reason: Nausea Stop: 07/10/20 00:21 Sodium Chloride (Sodium Chloride 0.9% 10ml Flush) 30 ml IV Q24H [facility] Stop: 06/14/20 01:01 Last Admin: 06/10/20 02:09 Dose: 30 ml Documented by: PG Care Time/CCT Total # of Minutes Spent Total Time Spent with Patient: Total time spent is greater than 50% in coordination of care (as documented) at patient's floor/unit and/or counseling patient: Coding Level of Care Code 77345 Subseq Hosp Care Lvl 2 Diagnoses Pneumonia due to COVID-19 virus U07.1; J12.89 Fatigue R53.83 Fatigue type: unspecified Hypoxia R09.02 (1) Fatigue Fatigue type: unspecified Qualified Code(s): R53.83 - Other fatigue
--- NOTE | 2020-06-10 14:28 | Electrocardiogram Report ---
Test Reason : Blood Pressure : / mmHG Vent. Rate : 100 BPM Atrial Rate : 100 BPM P-R Int : 126 ms QRS Dur : 076 ms QT Int : 342 ms P-R-T Axes : 039 -14 026 degrees QTc Int : 441 ms Normal sinus rhythm Inferior infarct , age undetermined Low voltage QRS Abnormal ECG When compared with ECG of 08-JUN-2020 11:11, No significant change was found Confirmed by Curtis Carreon ([id number]) on 06/10/2020 2:27:32 PM Referred By: REFERRED SELF Confirmed By:Curtis Carreon
[2020-06-10 14:33] LABS: Appearance Urine Cloudy (Clear); Bacteria Urine Automated Negative (Negative); Bilirubin Urine Negative (Negative); Blood Urine Trace (Negative); Color Urine Yellow; Glucose Urine UA Negative (Negative); Ketones Urine Negative (Negative); Leukocyte Esterase Urine 3+ (Negative); Nitrite Urine Negative (Negative); Protein Urine Trace (Negative); Urobilinogen Urine Negative (Negative); WBC Urine Automated >30 /hpf (0-5); pH Urine 5.5 (4.5-7.5)
[2020-06-10] MEDS: cefTRIAXone SODIUM 1,000 MG in DEXTROSE 5% 50 ML IV SCH (20:53)
[2020-06-10] MEDS: REMDESIVIR 100 MG in SODIUM CHLORIDE 0.9% 230 ML IV SCH (21:57)
[2020-06-11] MEDS ORDERED: ALBUTEROL HFA 8 GM INHALER INH PRN (06:57)
[2020-06-11] MEDS: dexAMETHasone 6 MG in SYRINGE 0 ML IV SCH (08:08)
[2020-06-11] MEDS: AZITHROMYCIN 500 MG in DEXTROSE 5% 250 ML IV SCH (08:08)
--- NOTE | 2020-06-11 12:48 | Hospitalist Progress Note ---
Date of Service June 11, 2020 Assessment & Plan (1) Pneumonia due to COVID-19 virus: Pneumonia due to COVID-19 virus infection with hypoxia- requiring 2L NC past two days, no distress Chest x-ray 06/09 shows worsening pneumonia compared to 06/08 Decadron 6 mg IV daily, day 3 Convalescent plasma administered 06/10 Remdesivir IV per protocol, day 3 if she would come off oxygen then would stop Remdesivir within the window as symptoms were less than 7 days Ceftriaxone 1 g IV daily x 5 days Azithromycin 500 mg IV daily x 5 days Ventolin HFA 2 puffs 4 times daily, and every 2 hours as needed Nasal cannula oxygen, titrate to keep pulse ox 94 to 95% check labs tomorrow try to wean oxygen as tolerated may get worse prior to getting better, watch closely but for now she remains completely stable (2) Fatigue: Patient's principal symptom is that of fatigue (3) Hypoxia: acute hypoxic respiratory failure due to COVID pneumonia stable on 2L for two days monitor closely for any desaturations Admission and Anticipated Discharge Date Admission Date: June 09, 2020 Subjective she continues to be stable on 2L eating fairly well, not interested in breakfast but will try to eat lunch today UA with > 30 WBC, no dysuria or frequency, told her she is on urine culture for lungs anyway no fever, no nausea, minimal cough Review of Systems Review of Systems: All systems reviewed & are unremarkable except as noted in Subjective Physical Exam Constitutional: WD/WN, vitals as above Neck: trachea midline, no thyromegaly Respiratory: normal respiratory effort, lungs clear to auscultation Cardiovascular: RRR, no murmur, no edema Gastrointestinal (Abdomen): normal bowel sounds, soft, nontender, no hepatosplenomegaly Musculoskeletal: no cyanosis or clubbing, extremities motor strength 5/5 Skin: no rashes, warm and dry Neurologic: patellar DTR's 2+ bilat, sensation intact and PERRL, EOMI, accommodation nl, no face palsy, no dysarthria Psychiatric: A+Ox3, euthymic affect Lymphatic: no cervical or axillary lymphadenopathy Results & Data Results & Data ([facility]) Vital Signs (Past 12 Hours) Vital Signs Temp Pulse Resp BP Pulse Ox Pulse Ox 06/11/20 11:00 94 06/11/20 07:37 36.7 C 75 18 100/61 92 Laboratory Results Laboratory Results - last 24 hr 06/10/20 Unknown Urine Color Yellow Urine Appearance Cloudy A Urine pH 5.5 Ur Specific Scalf 1.010 Urine Protein Trace H Urine Glucose (UA) Negative Urine Ketones Negative Urine Blood Trace H Urine Nitrite Negative Urine Bilirubin Negative Urine Urobilinogen Negative Ur Leukocyte Esterase 3+ H Urine WBC (Auto) >30 H Urine RBC (Auto) 10-30 H U Hyaline Cast (Auto) 1-5 U Epithel Cells (Auto) 5-10 H Urine Bacteria (Auto) Negative Medications Administered Current Inpatient Medications Acetaminophen (Acetaminophen 325 Mg Tab) 650 mg PO Q4H PRN PRN Reason: Pain or Fever Stop: 07/10/20 00:21 Albuterol (Albuterol Hfa 8 Gm Inhaler) 2 puffs INH Q4 PRN PRN Reason: Shortness Of Breath Or Wheezing Stop: 07/11/20 06:55 Dexamethasone 6 mg/ Syringe 1.5 mls @ 1 mls/min IV QAM [facility] Stop: 07/10/20 08:59 Last Admin: 06/11/20 08:08 Dose: 1 mls/min Documented by: Remdesivir 100 mg/ Sodium (Chloride) 250 mls @ 250 mls/hr IV Q24H [facility]; Protocol Stop: 06/13/20 20:59 Last Infusion: 06/10/20 23:28 Dose: Infused Documented by: Ceftriaxone Sodium 1,000 mg/ (Dextrose) 50 mls @ 100 mls/hr IV Q24H [facility]; Protocol Stop: 06/15/20 20:29 Last Infusion: 06/10/20 21:57 Dose: Infused Documented by: Azithromycin 500 mg/ Dextrose 255 mls @ 125 mls/hr IV DAILY [facility] Stop: 06/17/20 08:59 Last Infusion: 06/11/20 10:17 Dose: Infused Documented by: Ondansetron HCl (Ondansetron Inj 2 Mg/Ml 2 Ml Vial) 4 mg IV Q6H PRN PRN Reason: Nausea Stop: 07/10/20 00:21 Sodium Chloride (Sodium Chloride 0.9% 10ml Flush) 30 ml IV Q24H [facility] Stop: 06/14/20 01:01 Last Admin: 06/10/20 23:29 Dose: 30 ml Documented by: PG Care Time/CCT Total # of Minutes Spent Total Time Spent with Patient: Total time spent is greater than 50% in coordination of care (as documented) at patient's floor/unit and/or counseling patient: Coding Level of Care Code 39435 Subseq Hosp Care Lvl 2 Diagnoses Pneumonia due to COVID-19 virus U07.1; J12.89 Fatigue R53.83 Fatigue type: unspecified Hypoxia R09.02 (1) Fatigue Fatigue type: unspecified Qualified Code(s): R53.83 - Other fatigue
[2020-06-11] MEDS: cefTRIAXone SODIUM 1,000 MG in DEXTROSE 5% 50 ML IV SCH (19:42)
[2020-06-11] MEDS: REMDESIVIR 100 MG in SODIUM CHLORIDE 0.9% 230 ML IV SCH (20:29)
[2020-06-11] MEDS: SODIUM CHLORIDE 0.9% 10ML FLUSH IV SCH (21:49)
[2020-06-12 07:38] LABS: BUN Creatinine Ratio 26.3 (10-20); Calcium 8.3 mg/dl (8.5-10.1); Est GFR (African American) 101.6; Est GFR (Non-African American) 87.7; Potassium 3.7 mmol/L (3.5-5.1)
[2020-06-12] MEDS: dexAMETHasone 6 MG in SYRINGE 0 ML IV SCH (08:25)
[2020-06-12] MEDS: AZITHROMYCIN 500 MG in DEXTROSE 5% 250 ML IV SCH (08:28)
--- NOTE | 2020-06-12 14:57 | Hospitalist Progress Note ---
Date of Service June 12, 2020 Assessment & Plan (1) Pneumonia due to COVID-19 virus: Pneumonia due to COVID-19 virus infection with hypoxia- requiring 2L NC past two days, up to 3L today Chest x-ray 06/09 shows worsening pneumonia compared to 06/08 Decadron 6 mg IV daily, day 4 Convalescent plasma administered 06/10 Remdesivir IV per protocol, day 4 if she would come off oxygen then would stop Remdesivir within the window as symptoms were less than 7 days Ceftriaxone 1 g IV daily x 5 days, day 4 Azithromycin 500 mg IV daily x 5 days, day 4 Ventolin HFA 2 puffs 4 times daily, and every 2 hours as needed Nasal cannula oxygen, titrate to keep pulse ox 94 to 95% try to wean oxygen as tolerated may get worse prior to getting better, watch closely but for now she remains completely stable on 3L (2) Fatigue: Patient's principal symptom is that of fatigue (3) Hypoxia: acute hypoxic respiratory failure due to COVID pneumonia stable on 3L today, up very slightly but no increased work of breathing monitor closely for any desaturations Admission and Anticipated Discharge Date Admission Date: June 09, 2020 Subjective patient breathing well, up a little at 3L from 2L but no distress eating okay, not the greatest encouraged her to get OOB to a chair BID c/o some back pain, offered heating pad PRN labs show Cr of 0.7 and electrolytes stable Review of Systems Review of Systems: All systems reviewed & are unremarkable except as noted in Subjective Musculoskeletal: + back pain Physical Exam Constitutional: WD/WN, vitals as above Neck: trachea midline, no thyromegaly Respiratory: normal respiratory effort, lungs clear to auscultation Cardiovascular: RRR, no murmur, no edema Gastrointestinal (Abdomen): normal bowel sounds, soft, nontender, no hepatosplenomegaly Musculoskeletal: no cyanosis or clubbing, extremities motor strength 5/5 Skin: no rashes, warm and dry Neurologic: patellar DTR's 2+ bilat, sensation intact and PERRL, EOMI, accommodation nl, no face palsy, no dysarthria Psychiatric: A+Ox3, euthymic affect Lymphatic: no cervical or axillary lymphadenopathy Results & Data Results & Data ([facility]) Vital Signs (Past 12 Hours) Vital Signs Temp Pulse Resp BP Pulse Ox 12/13/20 07:52 36.6 C 64 17 113/71 94 Laboratory Results Laboratory Results - last 24 hr 06/12/20 05:57 Sodium 140 Potassium 3.7 Chloride 108 H Carbon Dioxide 27 Anion Gap 5.0 BUN 19 H D Creatinine 0.73 Est Cr Clr Drug Dosing 79.0 Est GFR ( Amer) 101.6 Est GFR (Non-Af Amer) 87.7 BUN/Creatinine Ratio 26.3 H Glucose 147 H Calcium 8.3 L Medications Administered Current Inpatient Medications Acetaminophen (Acetaminophen 325 Mg Tab) 650 mg PO Q4H PRN PRN Reason: Pain or Fever Stop: 07/10/20 00:21 Albuterol (Albuterol Hfa 8 Gm Inhaler) 2 puffs INH Q4 PRN PRN Reason: Shortness Of Breath Or Wheezing Stop: 07/11/20 06:55 Dexamethasone 6 mg/ Syringe 1.5 mls @ 1 mls/min IV QAM [facility] Stop: 07/10/20 08:59 Last Admin: 06/12/20 08:25 Dose: 1 mls/min Documented by: Remdesivir 100 mg/ Sodium (Chloride) 250 mls @ 250 mls/hr IV Q24H [facility]; Protocol Stop: 06/13/20 20:59 Last Infusion: 06/11/20 21:50 Dose: Infused Documented by: Ceftriaxone Sodium 1,000 mg/ (Dextrose) 50 mls @ 100 mls/hr IV Q24H [facility]; Protocol Stop: 06/15/20 20:29 Last Infusion: 06/11/20 20:21 Dose: Infused Documented by: Azithromycin 500 mg/ Dextrose 255 mls @ 125 mls/hr IV DAILY [facility] Stop: 06/17/20 08:59 Last Infusion: 06/12/20 10:41 Dose: Infused Documented by: Ondansetron HCl (Ondansetron Inj 2 Mg/Ml 2 Ml Vial) 4 mg IV Q6H PRN PRN Reason: Nausea Stop: 07/10/20 00:21 Sodium Chloride (Sodium Chloride 0.9% 10ml Flush) 30 ml IV Q24H [facility] Stop: 06/14/20 01:01 Last Admin: 06/11/20 21:49 Dose: 30 ml Documented by: PG Care Time/CCT Total # of Minutes Spent Total Time Spent with Patient: Total time spent is greater than 50% in coordination of care (as documented) at patient's floor/unit and/or counseling patient: Coding Level of Care Code 72168 Subseq Hosp Care Lvl 2 Diagnoses Pneumonia due to COVID-19 virus U07.1; J12.89 Fatigue R53.83 Fatigue type: unspecified Hypoxia R09.02 (1) Fatigue Fatigue type: unspecified Qualified Code(s): R53.83 - Other fatigue
[2020-06-12] MEDS: REMDESIVIR 100 MG in SODIUM CHLORIDE 0.9% 230 ML IV SCH (20:22)
[2020-06-12] MEDS: cefTRIAXone SODIUM 1,000 MG in DEXTROSE 5% 50 ML IV SCH (20:22)
[2020-06-12] MEDS: SODIUM CHLORIDE 0.9% 10ML FLUSH IV SCH (21:41)
[2020-06-13] MEDS: dexAMETHasone 6 MG in SYRINGE 0 ML IV SCH (09:13)
[2020-06-13] MEDS: AZITHROMYCIN 500 MG in DEXTROSE 5% 250 ML IV SCH (09:20)
--- NOTE | 2020-06-13 17:51 | Hospitalist Progress Note ---
Date of Service June 13, 2020 Assessment & Plan (1) Pneumonia due to COVID-19 virus: Pneumonia due to COVID-19 virus infection with hypoxia- requiring up to 3LNC and now weaned down to 2LNC Chest x-ray 06/09 shows worsening pneumonia compared to 06/08 Decadron 6 mg IV daily, day 5 Convalescent plasma administered 06/10 Remdesivir IV per protocol, day 5 and now completed Ceftriaxone 1 g IV daily x 5 days, day 5 Azithromycin 500 mg IV daily x 5 days, day 5 and now complete Ventolin HFA 2 puffs 4 times daily, and every 2 hours as needed Nasal cannula oxygen, titrate to keep pulse ox 94 to 95% try to wean oxygen as tolerated Improving, encouraged her to get OOB to chair and ambulate tomorrow (2) Fatigue: Patient's principal symptom is that of fatigue-improving (3) Hypoxia: acute hypoxic respiratory failure due to COVID pneumonia as above wean off as tolerated (4) DVT prophylaxis: add Lovenox Dispo-continued stsy, possible dc in the next 1-2 days PT/OT ordered Admission and Anticipated Discharge Date Admission Date: June 09, 2020 Subjective Pt feels fairly well but reports she did not get out of bed today. Denies CP or SOB but remains on O2 2LNC. Denies N/V/D, is moving bowels and making urine. Says she plans on getting OOB to chair and walking tomorrow Review of Systems Review of Systems: All systems reviewed & are unremarkable except as noted in HPI & below Physical Exam Constitutional: WD/WN, vitals as above Eyes: + anicteric sclerae ENMT: Nose: + external nose abnormality (nose is red) Neck: trachea midline, no thyromegaly Respiratory: normal respiratory effort, lungs clear to auscultation Cardiovascular: RRR, no murmur, no edema Chest (Breasts): Chest: normal inspection of chest Gastrointestinal (Abdomen): normal bowel sounds, soft, nontender, no hepatosplenomegaly Musculoskeletal: Extremities: extremities normal to inspection; no cyanosis and no clubbing Skin: no rashes, warm and dry Neurologic: moves all extremities and awake; no focal motor deficits Psychiatric: A+Ox3, euthymic affect Lymphatic: no lymphedema Results & Data Results & Data ([facility]) Vital Signs (Past 12 Hours) Vital Signs Temp Pulse Pulse Resp BP Pulse Ox Pulse Ox 06/13/20 15:55 36.6 C 69 16 103/64 93 06/13/20 08:00 92 06/13/20 07:28 36.7 C 63 16 123/77 Laboratory Results Ur cx neg BCxs NGTD PG Care Time/CCT Total # of Minutes Spent Total Time Spent with Patient: Total time spent is greater than 50% in coordination of care (as documented) at patient's floor/unit and/or counseling patient: Coding Level of Care Code 01119 Subseq Hosp Care Lvl 2 Diagnoses Pneumonia due to COVID-19 virus U07.1; J12.89 Fatigue R53.83 Fatigue type: unspecified Hypoxia R09.02 DVT prophylaxis Z29.9 (1) Fatigue Fatigue type: unspecified Qualified Code(s): R53.83 - Other fatigue
[2020-06-13] MEDS: REMDESIVIR 100 MG in SODIUM CHLORIDE 0.9% 230 ML IV SCH ×2 (20:58→22:20)
[2020-06-13] MEDS: cefTRIAXone SODIUM 1,000 MG in DEXTROSE 5% 50 ML IV SCH ×2 (20:59→22:00)
[2020-06-13] MEDS: ENOXAPARIN INJ 40 MG/0.4 ML SYR SQ SCH (21:11)
[2020-06-14] MEDS: SODIUM CHLORIDE 0.9% 10ML FLUSH IV SCH (00:25)
[2020-06-14 07:44] LABS: Basophils # (auto) 0.01 K/uL (0-0.2); Basophils % (auto) 0.1 %; Hematocrit (blood only) 39.4 % (37-47); Hemoglobin 13.1 g/dL (12.0-16.0); Immature Granulocytes # (auto) 0.12 K/uL (0.00-0.02); Immature Granulocytes % (auto) 1.3 %; Lymphocytes # (auto) 0.85 K/uL (1.2-3.4); Mean Corpuscular Hemoglobin 29.9 pg (25-34); Mean Corpuscular Hgb Conc 33.2 g/dL (32-36); Mean Platelet Volume 10.1 fL (7.4-10.4); Monocytes # (auto) 0.83 K/uL (0.11-0.59); Monocytes % (auto) 8.8 %; Neutrophils # (auto) 7.61 K/uL (1.4-6.5); Neutrophils % (auto) 80.8 %; Platelet Count 282 K/uL (130-400); RDW Standard Deviation 42.7 fL (36.4-46.3); Red Blood Count 4.38 M/uL (4.2-5.4); White Blood Count 9.42 K/uL (4.8-10.8)
[2020-06-14 08:03] LABS: Albumin Level 2.6 gm/dl (3.4-5.0); BUN Creatinine Ratio 27.3 (10-20); C Reactive Protein 1.71 mg/dl (0-0.29); Calcium 8.5 mg/dl (8.5-10.1); Creatinine Clr Calc Pharmacy 82.3 ml/min; Est GFR (African American) 106.9; Est GFR (Non-African American) 92.2; Potassium 3.6 mmol/L (3.5-5.1)
[2020-06-14 08:06] LABS: Albumin Globulin Ratio 0.6 (0.9-2); Bilirubin,Total 0.4 mg/dl (0.2-1); Total Protein 6.6 gm/dl (6.4-8.2)
[2020-06-14] MEDS: dexAMETHasone 6 MG in SYRINGE 0 ML IV SCH (08:38)
[2020-06-14] MEDS: ENOXAPARIN INJ 40 MG/0.4 ML SYR SQ SCH ×2 (09:45→20:28)
--- NOTE | 2020-06-14 12:17 | Hospitalist Progress Note ---
Date of Service June 14, 2020 Assessment & Plan (1) Pneumonia due to COVID-19 virus: Pneumonia due to COVID-19 virus infection with hypoxia- requiring up to 3LNC and now weaned down to 2LNC, but no respiratory distress and lungs clear--> asked RN to wean off O2 if possible today Chest x-ray 06/09 shows worsening pneumonia compared to 06/08 Decadron 6 mg IV daily, day 6 Convalescent plasma administered 06/10 Completed 5 days of Remdesivir IV Completed Ceftriaxone 1 g IV daily x 6 days Azithromycin 500 mg IV daily x 5 days, day 5 and now complete Ventolin HFA 2 puffs 4 times daily, and every 2 hours as needed try to wean oxygen as tolerated Improving, encouraged her to get OOB and ambulate-placed PT consult (2) Fatigue: Patient's principal symptom is that of fatigue-improved today (3) Hypoxia: acute hypoxic respiratory failure due to COVID pneumonia as above wean off as tolerated may need home O2 (4) DVT prophylaxis: Lovenox Dispo-continued stay, possible dc tomorrow , possibly with home O2 PT/OT ordered Admission and Anticipated Discharge Date Admission Date: June 09, 2020 Anticipated date of discharge: 06/15/20 Subjective Pt feels well but remains on O2. Denies CP or SOB, no N/V, is eating well, moved her bowels this AM. Tells me she went for a "walk" today all around the halls with the wheelchair. Upon further questioning, she reports she was sitting in the wheelchair and the RN was pushing her. No cough. Review of Systems Review of Systems: All systems reviewed & are unremarkable except as noted in HPI & below Physical Exam Constitutional: WD/WN, vitals as above Eyes: + anicteric sclerae Neck: trachea midline, no thyromegaly Respiratory: normal respiratory effort, lungs clear to auscultation Cardiovascular: RRR, no murmur, no edema Chest (Breasts): Chest: normal inspection of chest Gastrointestinal (Abdomen): normal bowel sounds, soft, nontender, no hepatosplenomegaly Musculoskeletal: Extremities: extremities normal to inspection; no cyanosis and no clubbing Skin: no rashes, warm and dry Neurologic: moves all extremities and awake; no focal motor deficits Psychiatric: A+Ox3, euthymic affect Lymphatic: no lymphedema Results & Data Results & Data ([facility]) Vital Signs (Past 12 Hours) Vital Signs Temp Pulse Resp BP Pulse Ox 06/14/20 08:11 36.4 C L 71 16 113/70 94 Laboratory Results 06/14/20 06/14/20 06/14/20 Range/Units 06:28 06:28 06:28 WBC 9.42 (4.8-10.8) K/uL RBC 4.38 (4.2-5.4) M/uL Hgb 13.1 (12.0-16.0) g/dL Hct 39.4 (37-47) % MCV 90.0 (80-100) fL MCH 29.9 (25-34) pg MCHC 33.2 (32-36) g/dL RDW Std Deviation 42.7 (36.4-46.3) fL RDW Coeff of Ahmet 13.0 (11.5-14.5) % Plt Count 282 (130-400) K/uL MPV 10.1 (7.4-10.4) fL Immature Gran % (Auto) 1.3 % Neut % (Auto) 80.8 % Lymph % (Auto) 9.0 % [place] % (Auto) 8.8 % Eos % (Auto) 0.0 % Baso % (Auto) 0.1 % Neut # (Auto) 7.61 H (1.4-6.5) K/uL Lymph # (Auto) 0.85 L (1.2-3.4) K/uL [place] # (Auto) 0.83 H (0.11-0.59) K/uL Eos # (Auto) 0.00 (0-0.5) K/uL Baso # (Auto) 0.01 (0-0.2) K/uL Immature Gran # (Auto) 0.12 H (0.00-0.02) K/uL ESR 54 H (0-21) mm/hr Sodium 140 (136-145) mmol/L Potassium 3.6 (3.5-5.1) mmol/L Chloride 106 (98-107) mmol/L Carbon Dioxide 27 (21-32) mmol/L Anion Gap 7.0 (3-11) BUN 19 H (7-18) mg/dl Creatinine 0.70 (0.6-1.2) mg/dl Est Cr Clr Drug Dosing 82.3 ml/min Est GFR ( Amer) 106.9 Est GFR (Non-Af Amer) 92.2 BUN/Creatinine Ratio 27.3 H (10-20) Glucose 138 H (70-99) mg/dl Calcium 8.5 (8.5-10.1) mg/dl Total Bilirubin 0.4 (0.2-1) mg/dl AST 20 (15-37) U/L ALT 38 (12-78) U/L Alkaline Phosphatase 62 (45-117) U/L C-Reactive Protein 1.71 H (0-0.29) mg/dl Total Protein 6.6 (6.4-8.2) gm/dl Albumin 2.6 L (3.4-5.0) gm/dl Globulin 4.0 (2.5-4.0) gm/dl Albumin/Globulin Ratio 0.6 L (0.9-2) PG Care Time/CCT Total # of Minutes Spent Total Time Spent with Patient: Total time spent is greater than 50% in coordination of care (as documented) at patient's floor/unit and/or counseling patient: Coding Level of Care Code 22292 Subseq Hosp Care Lvl 2 Diagnoses Pneumonia due to COVID-19 virus U07.1; J12.89 Fatigue R53.83 Fatigue type: unspecified Hypoxia R09.02 DVT prophylaxis Z29.9 (1) Fatigue Fatigue type: unspecified Qualified Code(s): R53.83 - Other fatigue
[2020-06-15] MEDS: dexAMETHasone 6 MG in SYRINGE 0 ML IV SCH (09:14)
[2020-06-15] MEDS: ENOXAPARIN INJ 40 MG/0.4 ML SYR SQ SCH ×2 (09:14→19:58)
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
[2020-06-16] MEDS: PNEUMOCOCCAL Polysaccharide Vaccine 25mcg/0.5mL vial/Syr IM ONE ×2 (04:22→12:37)
[2020-06-16] MEDS: dexAMETHasone 6 MG in SYRINGE 0 ML IV SCH ×2 (08:58→09:37)
[2020-06-16] MEDS: ENOXAPARIN INJ 40 MG/0.4 ML SYR SQ SCH (08:59)
[2020-06-16] MEDS ORDERED: dexAMETHasone 4 MG TAB PO SCH (09:30)
[2020-06-16] MEDS ORDERED: dexAMETHasone 1 MG TAB PO SCH (09:30)
--- NOTE | 2020-06-16 10:47 | Discharge Summary ---
Date of Service June 16, 2020 Admission HPI Per Admitting Provider The patient is a 64-year-old female with a past medical history including periodontitis, mild intellectual disability, hyperlipidemia and recent diagnosis of COVID-19 infection. Vital signs in the emergency department revealed the following:, Temperature 101.7 and pulse ox 90% on room air.. Significant laboratories: Glucose 129, albumin 3.3, potassium 2.9. COVID-19 was positive on 06/08. Principal Diagnosis COVID-19 Pneumonia, hypoxia Discharge Exam Constitutional WD/WN, vitals as above Eyes + anicteric sclerae Neck trachea midline, no thyromegaly Respiratory normal respiratory effort, lungs clear to auscultation Cardiovascular RRR, no murmur, no edema Chest (Breasts) Chest: normal inspection of chest Gastrointestinal (Abdomen) normal bowel sounds, soft, nontender, no hepatosplenomegaly Musculoskeletal Extremities: extremities normal to inspection; no cyanosis and no clubbing Skin no rashes, warm and dry Neurologic moves all extremities and awake; no focal motor deficits Psychiatric Orientation: alert, oriented to person, oriented to place and cooperative Lymphatic no lymphedema Discharge Data Allergies Allergy/AdvReac Type Severity Reaction Status Date / Time No Known Allergies Allergy Unverified 06/08/20 11:16 Consultations 06/09/20 20:27 ED Decision to Admit Stat Ordered Studies CXR Hospital Course (1) Pneumonia due to COVID-19 virus: Pneumonia due to COVID-19 virus infection with hypoxia- requiring up to 3LNC and now weaned off of oxygen at rest, but requires 1 L with exertion Chest x-ray 06/09 shows worsening pneumonia compared to 06/08 Decadron 6 mg IV daily, day 7-we will finish this out p.o. at home Convalescent plasma administered 06/10 Completed 5 days of Remdesivir IV Completed Ceftriaxone 1 g IV daily x 6 days Completed 5 days of azithromycin 500 mg IV daily Did not use any albuterol Much improved Stable for discharge to home after oxygen delivered today Recommend follow up CXR in 3-4 weeks to ensure resolution of PNA (2) Fatigue: Patient's principal symptom is that of fatigue-much improved (3) Hypoxia: acute hypoxic respiratory failure due to COVID pneumonia as above Needs home O2 wean off at home under guidance of PCP (4) DVT prophylaxis: Lovenox Dispo-medically stable for discharge PT/OT evals appreciated Total Time Total Time Spent Total Time Spent (In Minutes): 35 min Total Time Includes: Examination of the Patient, Discharge Planning and Medication Reconciliation Discharge Plan Discharge Items Patient Disposition: Home - Home Health Services Reason For Visit: SOB, ILLNESS, COVID + Discharge Diagnosis: COVID-19 Pneumonia, Acute respiratory failure with hypoxia Condition on Discharge: Good Activity: As commented below Lifting: Gradually increase as tolerated Bathing: No limitations Exercise/Sports: Gradually increase as tolerated Non-emergency contact: Primary Care Provider Call non-emergency contact if: you have any medication questions, your symptoms worsen and you have a fever Follow-up/Referrals: Bill Malik III, MD [Primary Care Provider] - 06/16/20 12:30 pm (VIRTUAL APPT WITH JAGRUTI TUCKER) Diet: Regular Addtl Attending Provider Instructions: Please finish out the course of dexamethasone for your pneumonia. Continue to wear the oxygen 1L via the nasal cannula with any activity. Follow up with your PCP within 1-2 weeks. Pending Studies at Discharge: No Stand-Alone Forms: My [facility] Medications and DC Order Prescriptions: New dexamethasone 6 mg tablet 6 mg PO DAILY Qty: 3 RF: 0 Continued acetaminophen [Tylenol Extra Strength] 500 mg Tablet 1,000 mg PO BID PRN (Reason: Pain) RF: 0 Discharge Orders: Discharge Order (Routine); Ordered 06/16/20 Ordered By: Maira Orr Admission Data Admit Date/Time: 06/09/20 22:39 Attending Provider: Maira Orr Admit Provider: Nicola Mcgregor Primary Care Provider: Bill Malik III Other Providers: Nicola Mcgregor Coding Level of Care Code D/C Day Management >30 mins Diagnoses Pneumonia due to COVID-19 virus U07.1; J12.89 Fatigue R53.83 Fatigue type: unspecified Hypoxia R09.02 DVT prophylaxis Z29.9
== END 2020-06-16 14:08 | disposition home or self-care (01) | DRG 177 ==
LOC: ED 18:41 → EDINP 22:39 → SUATTDRO 22:39 → EDINP 06-10 00:03 → 3E 06-10 12:08